=== PATIENT | female | born 1995 | race African-American/Black ===

== ENCOUNTER 2018-11-13 14:45 | Observation (INO) | payer MEDICAID ==
[~2018-11-13] VITALS: Ht 149.9 cm; Wt 71.7 kg
[2018-11-13 15:23] LABS: CLARITY URINE CLEAR (CLEAR); COLOR URINE YELLOW (YELLOW); KETONES URINE NEGATIVE (NEGATIVE); LEUKOCYTE ESTERASE URINE 1+ (NEGATIVE); NITRITE URINE NEGATIVE (NEGATIVE); OCCULT BLOOD URINE NEGATIVE (NEGATIVE); PROTEIN URINE NEGATIVE (NEGATIVE); UROBILINOGEN URINE 0.2 E.U./dL (0.2-1.0)
[2018-11-13] MEDS ORDERED: PREN1TAB78 MT (15:50)
[2018-11-13] MEDS ORDERED: LACTATED RINGERS 1,000 ML IV SCH (16:15)
[2018-11-13] MEDS ORDERED: CEFAZOLIN 2,000 MG in DEXT 5% WATER 100 ML IV SCH (16:30)
== END 2018-11-13 17:30 | disposition home or self-care (01) ==
LOC: 8 EST LDRP 14:45
PROVIDERS: ADMIT Specialist; ATTEND Specialist
DX: O62.9 Abnormality of forces of labor, unspecified (principal); O23.43 Unspecified infection of urinary tract in pregnancy, third trimester; Z3A.30 30 weeks gestation of pregnancy
CPT/HCPCS: 81003; 96365; 99281; G0378; J0690; J7060; 96360; 96361

== ENCOUNTER 2021-05-20 14:32 | Inpatient (IN) | payer MEDICAID ==
[~2021-05-20] VITALS: Ht 157.5 cm; Wt 86.2 kg
[~2021-05-20 14:32] MED LIST: PREN1TAB78 MT
[2021-05-20] MEDS ORDERED: MISOPROSTOL 100MCG TABLET VG SCH (14:45)
[2021-05-20] MEDS ORDERED: BUTORPHANOL TARTRATE 2 MG/ML VIAL IV PRN (14:45)
[2021-05-20] MEDS ORDERED: LIDOCAINE HCL 1% 20ML VIAL (Pyxis) INJ INFIL SCH (14:45)
[2021-05-20] MEDS ORDERED: NALOXONE HCL 0.4 MG/ML 1ML VIAL IM PRN (14:45)
[2021-05-20] MEDS ORDERED: LACTATED RINGERS 1,000 ML IV SCH (15:00)
[2021-05-20] MEDS ORDERED: ROPIVACAINE HCL/PF EPIDURAL 200 ML EPI SCH (15:00)
[2021-05-20] MEDS ORDERED: DEXT 5%/LR + PITOCIN 20UNITS/L 1,000 ML IV SCH ×2 (15:00→21:45)
[2021-05-20 15:09] LABS: BASOPHILS % 0.3 % (0.0-2.0); EOSINOPHILS % 0.1 % (0.0-5.0); HEMATOCRIT. 32.3 % (36.0-48.0); HEMOGLOBIN. 10.2 g/dL (12.0-16.0); LYMPHOCYTES % 34.5 % (20.0-50.0); MEAN CORPUSCULAR HEMOGLOBIN 23.2 pg (28.0-32.0); MEAN CORPUSCULAR VOLUME 73.4 fL (81.0-99.0); MEAN PLATELET VOLUME 7.5 fl (7.4-10.4); MONOCYTES % 8.2 % (2.0-8.0); NEUTROPHILS % 56.9 % (40.0-76.0); PLATELET 307 x1000/uL (130-400); RED BLOOD CELL COUNT 4.39 mill/uL (4.2-5.4); RED CELL DISTRIBUTION WIDTH 17.8 % (11.6-14.6)
[2021-05-20 15:14] LABS: CHLORIDE 105 mEq/L (98-107)
[2021-05-20 15:44] LABS: CLARITY URINE CLEAR (CLEAR); COLOR URINE YELLOW (YELLOW); KETONES URINE 3+ (NEGATIVE); LEUKOCYTE ESTERASE URINE NEGATIVE (NEGATIVE); NITRITE URINE NEGATIVE (NEGATIVE); OCCULT BLOOD URINE NEGATIVE (NEGATIVE); PH URINE 6.5 (4.5-8.0); PROTEIN URINE TRACE (NEGATIVE); SPECIFIC GRAVITY URINE 1.019 (1.005-1.030)
[2021-05-20 15:57] LABS: HEPATITIS B SURFACE ANTIGEN NEGATIVE
[2021-05-20 16:01] LABS: INR 0.9; PARTIAL THROMBOPLASTIN TIME 26.2 sec (23.4-31.0); PROTHROMBIN TIME 10.2 sec (9.6-11.0)
[2021-05-20] MEDS ORDERED: ROPIVACAINE HCL/PF EPIDURAL 200 ML EPI ONE (16:08)
[2021-05-20 16:11] LABS: *AMPHETAMINES SCREEN URINE NEGATIVE (NEGATIVE); *BARBITURATES SCREEN URINE NEGATIVE (NEGATIVE); *BENZODIAZEPINES SCREEN URINE NEGATIVE (NEGATIVE); *COCAINE SCREEN URINE NEGATIVE (NEGATIVE); CANNABINOID URINE SCREEN NEGATIVE (NEGATIVE); METHADONE URINE SCREEN NEGATIVE (NEGATIVE); OPIATES URINE SCREEN NEGATIVE (NEGATIVE); PHENCYCLIDINE URINE SCREEN NEGATIVE (NEGATIVE)
[2021-05-20] MEDS ORDERED: PENICILLIN G POTASSIUM 5 MMU in DEXT 5% WATER 100 ML IV NR (16:30)
[2021-05-20] MEDS ORDERED: PENICILLIN G POTASSIUM 2.5 MMU in DEXTROSE 5% WATER 50 ML IV SCH (21:00)
[2021-05-20] MEDS ORDERED: HEMORRHOIDAL SUPP PR PRN (21:45)
[2021-05-20] MEDS ORDERED: GLYCERIN/WITCH HAZEL LEAF MEDICATED PAD TOP PRN (21:45)
[2021-05-20] MEDS ORDERED: IBUPROFEN 400MG TABLET PO PRN (21:45)
[2021-05-20] MEDS ORDERED: DIPHENHYDRAMINE 25MG CAPSULE PO PRN (21:45)
[2021-05-20] MEDS ORDERED: LANOLIN OINT 7GM TUBE TOP PRN (21:45)
[2021-05-20] MEDS ORDERED: BENZOCAINE/LANOLIN/ALOE VERA SPRAY TOP PRN (21:45)
[2021-05-20] MEDS ORDERED: BISACODYL 10MG SUPP PR PRN (21:45)
[2021-05-20] MEDS ORDERED: RHO(D) IMMUNE GLOBULIN 300 MCG/SYR IM PRN (21:45)
[2021-05-20 22:10] VITALS: BP 126/70
[2021-05-20] MEDS: IBUPROFEN 800MG TABLET PO PRN (22:10)
[2021-05-21] VITALS: BP 130/75
[2021-05-21 04:00] VITALS: BP 97/59
[2021-05-21] MEDS: IBUPROFEN 800MG TABLET PO PRN (05:42)
[2021-05-21 08:00] VITALS: BP 103/61
[2021-05-21] MEDS ORDERED: TETANUS, DIPHTHERIA, PERTUSSIS VAC/PF 0.5ML (>10YR OLD) IM ONE (08:00)
[2021-05-21] MEDS ORDERED: INFLUENZA VACCINE 05/PF 0.5 ML SYRINGE IM ONE (08:00)
[2021-05-21 08:03] LABS: BASOPHILS % 0.2 % (0.0-2.0); EOSINOPHILS % 0.1 % (0.0-5.0); HEMATOCRIT. 32.1 % (36.0-48.0); HEMOGLOBIN. 10.3 g/dL (12.0-16.0); LYMPHOCYTES % 17.3 % (20.0-50.0); MEAN CORPUSCULAR HEMOGLOBIN 23.4 pg (28.0-32.0); MEAN CORPUSCULAR VOLUME 73.4 fL (81.0-99.0); MEAN PLATELET VOLUME 7.8 fl (7.4-10.4); MONOCYTES % 9.7 % (2.0-8.0); NEUTROPHILS % 72.7 % (40.0-76.0); PLATELET 294 x1000/uL (130-400); RED BLOOD CELL COUNT 4.38 mill/uL (4.2-5.4); RED CELL DISTRIBUTION WIDTH 18.1 % (11.6-14.6)
[2021-05-21] MEDS: PRENATAL VIT/FE FUMARATE/FA TABLET PO SCH (09:49)
[2021-05-21] MEDS: SIMETHICONE 80MG TABLET CHEW PO SCH ×4 (09:49→21:00)
[2021-05-21] MEDS: FERROUS SULFATE 325MG TABLET PO SCH ×3 (09:49→17:30)
[2021-05-21] MEDS: ACETAMINOPHEN WITH CODEINE 300/30MG TABLET PO PRN ×2 (09:49→20:16)
[2021-05-21] MEDS: MAGNESIUM/ALUMINUM HYDROXIDE/SIMETHICONE 30ML UDC PO SCH ×4 (09:51→21:00)
[2021-05-21 16:00] VITALS: BP 120/63
[2021-05-21 18:26] LABS: PLATELET ESTIMATE NORMAL
[2021-05-21 19:30] VITALS: BP 106/63
[2021-05-21] MEDS ORDERED: DOCUSATE SODIUM 100MG CAPSULE PO SCH (21:00)
[2021-05-22 04:00] VITALS: BP 102/56
[2021-05-22] MEDS: ACETAMINOPHEN WITH CODEINE 300/30MG TABLET PO PRN (05:53)
[2021-05-22 08:59] VITALS: BP 98/63
[2021-05-22] MEDS: PRENATAL VIT/FE FUMARATE/FA TABLET PO SCH (11:08)
[2021-05-22] MEDS: MAGNESIUM/ALUMINUM HYDROXIDE/SIMETHICONE 30ML UDC PO SCH (11:08)
[2021-05-22] MEDS: SIMETHICONE 80MG TABLET CHEW PO SCH (11:08)
== END 2021-05-22 13:00 | disposition home or self-care (01) | DRG 560 ==
LOC: 8 EST LDRP 14:32 → 8EST 21:00
PROVIDERS: ADMIT Obstetrics & Gynecology; ATTEND Obstetrics & Gynecology
PROC: 10E0XZZ Delivery of Products of Conception, External Approach (ICD-10-PCS; principal; 2021-05-20)
DX: O69.81X0 Labor and delivery complicated by cord around neck, without compression, not applicable or unspecified (principal); Z37.0 Single live birth; Z20.822 Contact with and (suspected) exposure to COVID-19; Z3A.39 39 weeks gestation of pregnancy
CPT/HCPCS: 36415; 80053; 80305; 81003; 85025; 86592; 86703; 86762; 86850; 86900; 87340; 87426; 90686; 90715; 99281; J0595; J2540; J2590; J2795; J3490; J7060; J7120; A4315